=== PATIENT | female | born 1965 ===

== ENCOUNTER 2018-01-19 00:12 | Emergency (ER) | payer OTHER ==
[2018-01-19 00:18] VITALS: BP 102/69
[2018-01-19] MEDS ORDERED: TYLENOL ONE (01:34)
[2018-01-19] MEDS ORDERED: TYLENOL PO ONE (01:35)
== END 2018-01-19 05:25 | disposition left against medical advice (07) ==
LOC: ED 00:12
DX: M54.2 Cervicalgia (principal); M54.6 Pain in thoracic spine; Z53.21 Procedure and treatment not carried out due to patient leaving prior to being seen by health care provider